=== PATIENT | female | born 1965 | race African-American/Black ===

== ENCOUNTER 2021-08-10 14:51 | Outpatient (CLI) | payer BC | END 2021-08-10 14:52 | disposition home or self-care (01) | LOC: CSHMAMMO 14:51 | PROVIDERS: ATTEND Obstetrics & Gynecology | DX: Z12.31 Encounter for screening mammogram for malignant neoplasm of breast (principal); Z98.890 Other specified postprocedural states | CPT/HCPCS: 77063; 77067 ==

== ENCOUNTER 2023-08-19 14:06 | Outpatient (CLI) | payer BC | END 2023-08-19 14:07 | disposition home or self-care (01) | LOC: CSHMAMMO 14:06 | PROVIDERS: ATTEND Obstetrics & Gynecology | DX: Z12.31 Encounter for screening mammogram for malignant neoplasm of breast (principal); N63.10 Unspecified lump in the right breast, unspecified quadrant; Z91.89 Other specified personal risk factors, not elsewhere classified | CPT/HCPCS: 77063; 77067 ==

== ENCOUNTER 2023-08-23 09:42 | Outpatient (CLI) | payer BC | END 2023-08-23 09:43 | disposition home or self-care (01) | LOC: CSHULT 09:42 | PROVIDERS: ATTEND Obstetrics & Gynecology | DX: N63.10 Unspecified lump in the right breast, unspecified quadrant (principal) ==

== ENCOUNTER → 2023-09-02 | Day surgery (SDC) | payer BC | LOC: CSHULT 12:38 | PROVIDERS: ATTEND Obstetrics & Gynecology | PROC: 0H9T3ZX Drainage of Right Breast, Percutaneous Approach, Diagnostic (ICD-10-PCS; principal; 2023-09-02) | DX: N64.1 Fat necrosis of breast (principal) | CPT/HCPCS: 19083; 88305; 88341; 88342 ==

== ENCOUNTER 2024-08-22 08:15 | Outpatient (CLI) | payer BC | END 2024-08-22 08:16 | disposition home or self-care (01) | LOC: CSHMAMMO 08:15 | PROVIDERS: ATTEND Obstetrics & Gynecology | DX: Z12.31 Encounter for screening mammogram for malignant neoplasm of breast (principal); Z98.890 Other specified postprocedural states | CPT/HCPCS: 77063; 77067 ==

== ENCOUNTER 2025-08-23 14:24 | Outpatient (CLI) | payer BC | END 2025-08-23 14:25 | disposition home or self-care (01) | LOC: CSHMAMMO 14:24 | PROVIDERS: ATTEND Obstetrics & Gynecology | DX: Z12.31 Encounter for screening mammogram for malignant neoplasm of breast (principal); Z98.890 Other specified postprocedural states | CPT/HCPCS: 77063; 77067 ==